=== PATIENT | female | born 1995 | race African-American/Black ===

== ENCOUNTER → 2019-12-27 | Outpatient (CLI) | payer BC ==
[2019-12-28 09:58] LABS: FOLLICLE STIMULATING HORMONE 7.3 mIU/mL (.)
[2019-12-28 09:59] LABS: PROLACTIN 18.2 ng/mL (4.8-23.3)
== END ==
LOC: OD 10:11
PROVIDERS: ATTEND Specialist
DX: E28.8 Other ovarian dysfunction (principal)
CPT/HCPCS: 36415; 83001; 83036; 84146; 84443